=== PATIENT | female | born 1975 | race Caucasian/White ===

== ENCOUNTER 2016-10-13 11:14 | Emergency (ER) | payer MEDICAID ==
[~2016-10-13] VITALS: Ht 162.6 cm; Wt 97.5 kg
[~2016-10-13 11:14] MED LIST: ADVIL; ADVIL200 M1; MOTRIN200 MG; [UNRECOGNIZED DRUG - REMARK]
[2016-10-13 11:18] VITALS: BP 137/94
--- NOTE | 2016-10-13 12:24 | NUR ---
Patient ambulated to bed 5. RN evaluating patient at bedside.
--- NOTE | 2016-10-13 12:28 | NUR ---
Pt came to ER w/ c/o throbbing Headache x 1 wk pain scale of 8/10--denies cp/sob/n/v/f/cough/dizziness at this time, denies recent injury;Pt adds awoke today with throat pain;aaox4;no acute distress noted at this time;unlabored breathing w/ symmetrical chest expansion;HOB elevated;needs attended;safety measures done;all monitors in placed;positioned for comfort;
--- NOTE | 2016-10-13 12:30 | NUR ---
Dr. Stokes evaluating patient at bedside.
[2016-10-13] MEDS ORDERED: DEXAMETHASONE 4 MG/ML VIAL PO ONE (12:35)
[2016-10-13] MEDS ORDERED: ACETAMINOPHEN EXTRA STRENGTH 500 MG TAB PO ONE (12:35)
[2016-10-13] MEDS ORDERED: METOCLOPRAMIDE 10 MG TAB PO ONE (12:35)
--- NOTE | 2016-10-13 13:10 | NUR ---
pt went ct scan accompanied by tech.
[2016-10-13] MEDS ORDERED: ONDANSETRON 4 MG/2 ML VIAL IVP ONE (14:20)
[2016-10-13] MEDS ORDERED: NACL 0.9% 1,000 ML IV ONE (14:20)
[2016-10-13] MEDS ORDERED: MORPHINE SULFATE 4 MG/ML SYR IVP ONE (14:20)
[2016-10-13] MEDS ORDERED: LIDOCAINE 1% 500 MG/50 ML VIAL INJ ONE (14:20)
--- NOTE | 2016-10-13 14:54 | NUR ---
Dr. Stokes at bedside for lumbar puncture.
--- NOTE | 2016-10-13 15:30 | NUR ---
PT STILL C/O HEADACHE;NOTIFIED DR ESTRADA;PRESCRIBED ULTRAM AND ATIVAN.
[2016-10-13] MEDS ORDERED: traMADol 50 MG TAB PO ONE (15:35)
[2016-10-13] MEDS ORDERED: LORazepam 0.5 MG TAB PO ONE (15:35)
--- NOTE | 2016-10-13 16:08 | NUR ---
PT LYING ON BED;PT C/O HEADACHE;POSITIONED FOR COMFORT;NEEDS ATTENDED;WILL CONITMUE TO MONITOR PT.
--- NOTE | 2016-10-13 16:09 | NUR ---
DR ESTRADA AT BEDSIDE.
--- NOTE | 2016-10-13 16:16 | NUR ---
ASSESSED LUMBAR PUNCTURE SITE;NO BLOOD /CSF LEAKING;PT DENIES PAIN AT THE SITE;WILL CONTINUE TO MONITOR PT.
--- NOTE | 2016-10-13 16:50 | NUR ---
Patient to be transferred to [facility]. Is being transferred due to HIGHER LEVEL OF CARE;NEURO SURGERY. Receiving facility has accepting physician and available space. ER physician has signed transfer form. Patient or responsible libertarian has agreed to transfer and signed form. Patient belongings inventoried and will be sent with patient. Copy of nursing notes, lab reports, EKG, Physicians Orders and X-rays to be sent with patient. Report called to CAROLINA DUNBAR at receiving facility. [facility] ambulance service has been called for transfer. ETA is 30 MINS.
--- NOTE | 2016-10-13 17:00 | NUR ---
[facility] at bedside for transport to [facility].
[2016-10-13 17:12] VITALS: BP 142/86
== END 2016-10-13 16:50 | disposition short-term general hospital (02) ==
LOC: MED 11:14
DX: R51 Headache (principal); H53.149 Visual discomfort, unspecified; J02.9 Acute pharyngitis, unspecified
CPT/HCPCS: 36415; 62270; 70450; 80053; 81002; 81025; 82948; 84157; 85025; 85610; 85730; 87070; 87205; 96361; 96374; 96375; 99285; J1100; J2001; J2270; J2405; J7030; J8597; Q0163

== ENCOUNTER 2018-10-16 12:50 | Emergency (ER) | payer MEDICAID ==
[~2018-10-16] VITALS: Ht 162.6 cm; Wt 96.8 kg
[2018-10-16 13:00] VITALS: BP 134/76
--- NOTE | 2018-10-16 13:52 | NUR ---
PATIENT AMBULATED TO BED 11
--- NOTE | 2018-10-16 14:02 | NUR ---
PT C/O LLQ ABD PAIN X3 DAYS. PT REPORTS 10/10 BURNING SHARP PAIN, PRIMARILY ON L SIDE. DENIES N/V/D. PT TOOK MOTRIN. SKIN IS PINK/WARM/DRY; AAOX4 WITH EVEN AND STEADY GAIT; LUNGS CLEAR BL; HR EVEN AND REGULAR; PT DENIES ANY FEVER, CP, SOB, OR COUGH AT THIS TIME; PATIENT STATES PAIN OF 10/10 AT THIS TIME; VSS; PATIENT POSITIONED FOR COMFORT; HOB ELEVATED; BEDRAILS UP X2; BED DOWN. ER MD MADE AWARE OF PT STATUS.
[2018-10-16] MEDS ORDERED: KETOROLAC 15 MG/ML VIAL IVP ONE (15:10)
--- NOTE | 2018-10-16 15:18 | NUR ---
PT LEFT FOR CT VIA WHEELCHAIR PER TECH
[2018-10-16 15:33] LABS: BASOPHILS # (AUTO) 0.1 K/uL (0.00-0.22); BASOPHILS % (AUTO) 0.4 % (0.0-2.0); EOSINOPHILS # (AUTO) 0.2 K/uL (0-0.4); EOSINOPHILS % (AUTO) 1.7 % (0.0-4.0); HEMATOCRIT 40.7 % (36-48); HEMOGLOBIN 13.6 g/dL (12.0-16.0); LYMPHOCYTES # (AUTO) 2.8 K/uL (2.5-16.5); LYMPHOCYTES % (AUTO) 22.1 % (20.5-51.1); MEAN CORPUSCULAR HEMOGLOBIN 31 pg (27-31); MEAN CORPUSCULAR HGB CONC 34 g/dL (33-37); MEAN CORPUSCULAR VOLUME 92.9 fL (80-94); MONOCYTES % (AUTO) 7.6 % (1.7-9.3); NEUTROPHILS # (AUTO) 8.8 K/uL (1.8-7.7); NEUTROPHILS % (AUTO) 68.2 % (42.2-75.2); PLATELET COUNT (AUTO) 308 K/uL (140-450); RED BLOOD CELL COUNT(AUTO) 4.39 MIL/uL (4.20-5.40); RED CELL DISTRIBUTION WIDTH 13.1 % (11.6-13.7); WHITE BLOOD COUNT (AUTO) 12.9 K/uL (4.8-10.8)
[2018-10-16 15:35] LABS: APPEARANCE,URINE CLEAR (CLEAR); BILIRUBIN,URINE NEGATIVE (NEGATIVE); BLOOD, URINE NEGATIVE (NEGATIVE); COLOR,URINE YELLOW (YELLOW); NITRITE, URINE NEGATIVE (NEGATIVE); UGLUCOSE NEGATIVE (NEGATIVE)
[2018-10-16 15:36] LABS: LEUKOCYTE ESTERASE ,URINE NEGATIVE (NEGATIVE)
[2018-10-16 15:38] LABS: CARBON DIOXIDE 27.9 mmol/L (21-32); CREATININE 0.7 mg/dL (0.6-1.3); POTASSIUM 3.9 mmol/L (3.5-5.1)
[2018-10-16 15:45] LABS: ALBUMIN 3.4 g/dL (3.4-5.0); TOTAL BILIRUBIN 0.3 mg/dL (0.0-1.0)
[2018-10-16 16:43] VITALS: BP 128/75
--- NOTE | 2018-10-16 16:44 | NUR ---
Patient discharged with v/s stable. Written and verbal after care instructions given and explained. Patient alert, oriented and verbalized understanding of instructions. Ambulatory with steady gait. All questions addressed prior to discharge. ID band removed. Patient advised to follow up with PMD. Rx of NORCO, COLACE, FLAGYL AND BACTRIM given. Patient educated on indication of medication including possible reaction and side effects. Opportunity to ask questions provided and answered.
== END 2018-10-16 16:44 | disposition home or self-care (01) ==
LOC: MED 12:50
DX: K57.32 Diverticulitis of large intestine without perforation or abscess without bleeding (principal); R03.0 Elevated blood-pressure reading, without diagnosis of hypertension
CPT/HCPCS: 36415; 74176; 76856; 80053; 81003; 81025; 85025; 93976; 96374; 99284; J1885; Q0092

== ENCOUNTER 2019-04-25 08:21 | Emergency (ER) | payer SELFPAY ==
[~2019-04-25] VITALS: Ht 167.6 cm; Wt 79.4 kg
[2019-04-25 08:27] VITALS: BP 155/93
--- NOTE | 2019-04-25 08:27 | NUR ---
PT AMBULATED TO BED 09.
--- NOTE | 2019-04-25 08:56 | NUR ---
DR. SHARIF EVALUATING PT AT BEDSIDE.
[2019-04-25] MEDS ORDERED: KETOROLAC 60 MG/2 ML VIAL IM ONE (09:00)
[2019-04-25] MEDS ORDERED: ONDANSETRON 4 MG ODT PO ONE (09:00)
--- NOTE | 2019-04-25 09:08 | NUR ---
C/O GENERALIZED HEADACHE X3 DAYS CONSTANT SHARP 03/25. STATES "BOTH MY EYEBALLS HURT". NO VISUAL CHANGES, DIZZINESS. STATES N/V THAT STARTED THIS AM WITH 1X VOMITING. TAKING MOTRIN AT 0400 WITH NO IMPROVEMENT PERRL. 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 FULL CLEAR SPEECH. EVEN STEADY GAIT. HX DENIES
--- NOTE | 2019-04-25 10:15 | NUR ---
Patient re-evaluated for Torodal given for a pain of 10/10. Patient stated that the pain has not decreased and requested the lights be dimmed to see if that helps. Lights dimmed, will re-evaluate again for level of pain.
[2019-04-25] MEDS ORDERED: MORPHINE SULFATE 2 MG/ML SYR IM ONE (10:40)
--- NOTE | 2019-04-25 11:32 | NUR ---
PT STATES PAIN OF 8/10 AND CONTINUING TO DECREASE.
[2019-04-25 11:48] VITALS: BP 120/75
--- NOTE | 2019-04-25 11:48 | NUR ---
Patient discharged with v/s stable. Written and verbal after care instructions given and explained. Patient alert, oriented and verbalized understanding of instructions. Ambulatory with steady gait. All questions addressed prior to discharge. ID band removed. Patient advised to follow up with PMD. Rx of Tramadol 50mg given. Patient educated on indication of medication including possible reaction and side effects. Opportunity to ask questions provided and answered.
== END 2019-04-25 11:48 | disposition home or self-care (01) ==
LOC: MED 08:21
DX: G44.209 Tension-type headache, unspecified, not intractable (principal); R03.0 Elevated blood-pressure reading, without diagnosis of hypertension
CPT/HCPCS: 96372; 99283; J1885; J2270; Q0162

== ENCOUNTER 2019-06-07 12:45 | Emergency (ER) | payer MEDICAID ==
[~2019-06-07] VITALS: Ht 160 cm; Wt 88.5 kg
[2019-06-07 13:04] VITALS: BP 153/96
--- NOTE | 2019-06-07 13:15 | NUR ---
PT AMBULATED TO BED 04.
--- NOTE | 2019-06-07 13:15 | NUR ---
few hours ptc pt c/o of left sided headache accompanied by numbness of left side of the face .pt awake ,alert ,gsc 15 ,sensory 5/5 , 5/5 motor rt and left.no facial assymetry nor speech deficit at this time. pmhx htn. meds
[2019-06-07] MEDS ORDERED: diphenhydrAMINE 50 MG/ML VIAL IVP ONE (13:40)
[2019-06-07] MEDS ORDERED: PROCHLORPERAZINE 10 MG/2 ML VIAL IVP ONE (13:40)
[2019-06-07] MEDS ORDERED: KETOROLAC 30 MG/ML VIAL IVP ONE (13:40)
--- NOTE | 2019-06-07 14:18 | NUR ---
pt went to [facility] via wheel chair.
--- NOTE | 2019-06-07 14:25 | NUR ---
pt back from [facility] on a wheel chair.
--- NOTE | 2019-06-07 14:30 | NUR ---
PT REPORTS RELIEF OF PAIN POST MEDICATION ADMIN. RATES PAIN AT 10.
[2019-06-07 14:40] LABS: BASOPHILS % (AUTO) 0.3 % (0.0-2.0); EOSINOPHILS # (AUTO) 0.1 K/uL (0-0.4); EOSINOPHILS % (AUTO) 1.3 % (0.0-4.0); HEMATOCRIT 44.2 % (36-48); HEMOGLOBIN 14.7 g/dL (12.0-16.0); LYMPHOCYTES # (AUTO) 1.8 K/uL (2.5-16.5); MEAN CORPUSCULAR HEMOGLOBIN 32 pg (27-31); MEAN CORPUSCULAR HGB CONC 33 g/dL (33-37); MEAN CORPUSCULAR VOLUME 95.7 fL (80-94); MONOCYTES # (AUTO) 0.7 K/uL (0.8-1.0); MONOCYTES % (AUTO) 6.4 % (1.7-9.3); NEUTROPHILS # (AUTO) 7.5 K/uL (1.8-7.7); PLATELET COUNT (AUTO) 351 K/uL (140-450); RED BLOOD CELL COUNT(AUTO) 4.62 MIL/uL (4.20-5.40); RED CELL DISTRIBUTION WIDTH 13.3 % (11.6-13.7); WHITE BLOOD COUNT (AUTO) 10.1 K/uL (4.8-10.8)
[2019-06-07 14:52] LABS: ANION GAP 11.4 (8-16); CARBON DIOXIDE 28.4 mmol/L (21-32); CREATININE 0.6 mg/dL (0.6-1.3); POTASSIUM 3.8 mmol/L (3.5-5.1)
--- NOTE | 2019-06-07 15:40 | NUR ---
IV removed, catheter intact and site benign. Applied folded 4x4 gauze and tape to stop bleeding.
[2019-06-07 15:56] VITALS: BP 151/88
== END 2019-06-07 15:56 | disposition home or self-care (01) ==
LOC: MED 12:45
DX: G43.909 Migraine, unspecified, not intractable, without status migrainosus (principal); I10 Essential (primary) hypertension
CPT/HCPCS: 36415; 70450; 80048; 81025; 85025; 96374; 96375; 99284; J0780; J1200; J1885

== ENCOUNTER 2019-07-18 17:07 | Emergency (ER) | payer MEDICAID ==
[~2019-07-18] VITALS: Ht 157.5 cm; Wt 88.9 kg
[2019-07-18 17:12] VITALS: BP 121/76
--- NOTE | 2019-07-18 17:15 | NUR ---
PT AMBULATED TO ER BED 08
--- NOTE | 2019-07-18 18:12 | NUR ---
44 Y/O F C/O LEFT FLANK PAIN 5/10 THAT DOES NOT RADIATE. PT STATES PAIN X 3 DAYS, GETTING WORSE TODAY. PT DENIES N/V/F OR PAIN WITH URINATION. PT ABDOMEN SOFT, NON TENDER TO TOUCH. PT PUT IN GOWN, POSITIONED FOR COMFORT. FAMILY MEMBER AT BEDSIDE. BED LOWER, SIDE RAIL X1 IN PLACE. NKA
--- NOTE | 2019-07-18 18:13 | NUR ---
UA COLLECTED, SENT TO LAB.
[2019-07-18 18:22] LABS: APPEARANCE,URINE CLEAR (CLEAR); BILIRUBIN,URINE 1+ (NEGATIVE); BLOOD, URINE NEGATIVE (NEGATIVE); COLOR,URINE YELLOW (YELLOW); LEUKOCYTE ESTERASE ,URINE 1+ (NEGATIVE); NITRITE, URINE NEGATIVE (NEGATIVE); PH,URINE 6.5 (5.0-9.0); UGLUCOSE NEGATIVE (NEGATIVE)
[2019-07-18] MEDS ORDERED: HYDROcodone/APAP 5/325 MG 1 TAB TAB PO ONE (18:25)
[2019-07-18 18:41] LABS: RBC,URINE 0 /HPF (0-5)
--- NOTE | 2019-07-18 18:46 | NUR ---
PT RESTING COMFORTABLY, VSS. FAMILY MEMBER AT BEDSIDE.
[2019-07-18] MEDS ORDERED: CEPHALEXIN 500 MG CAP PO ONE (18:50)
--- NOTE | 2019-07-18 18:56 | NUR ---
DR DIAZ AT BEDSIDE EXAMINING PATIENT.
[2019-07-18 19:02] VITALS: BP 121/76
== END 2019-07-18 19:02 | disposition home or self-care (01) ==
LOC: MED 17:07
DX: N30.90 Cystitis, unspecified without hematuria (principal)
CPT/HCPCS: 81001; 81025; 87086; 99283

== ENCOUNTER 2019-08-21 18:41 | Emergency (ER) | payer MEDICAID ==
[~2019-08-21] VITALS: Ht 162.6 cm; Wt 89.4 kg
[2019-08-21 18:46] VITALS: BP 149/91
--- NOTE | 2019-08-21 18:55 | NUR ---
w/c assist to bed 04 with daughter
--- NOTE | 2019-08-21 19:07 | NUR ---
Fell to concrete ground from standing position. States LOC for 5 minutes per daughter. Pt states generalized headache and dizziness. pt awake , alert, afibrile c/o headache 10/10 , no neurologic deficit at time of examination. Hx- denies
--- NOTE | 2019-08-21 19:11 | NUR ---
give report to todd mayorga.
--- NOTE | 2019-08-21 19:13 | NUR ---
Dr. Martin examining patient.
[2019-08-21] MEDS ORDERED: KETOROLAC 60 MG/2 ML VIAL IM ONE (19:20)
[2019-08-21] MEDS ORDERED: ONDANSETRON 4 MG/2 ML VIAL IM ONE (19:20)
[2019-08-21] MEDS ORDERED: PROCHLORPERAZINE 10 MG/2 ML VIAL IM ONE (20:05)
[2019-08-21] MEDS ORDERED: diphenhydrAMINE 50 MG/ML VIAL IM ONE (20:05)
[2019-08-21 21:08] VITALS: BP 135/87
--- NOTE | 2019-08-21 21:09 | NUR ---
Patient discharged with v/s stable. Written and verbal after care instructions given and explained. Patient alert, oriented and verbalized understanding of instructions. Ambulatory with steady gait escorted by family. All questions addressed prior to discharge. ID band removed. Patient advised to follow up with PMD. Rx of COMPAZINE, BENADRYL given. Patient educated on indication of medication including possible reaction and side effects. Opportunity to ask questions provided and answered.
== END 2019-08-21 21:09 | disposition home or self-care (01) ==
LOC: MED 18:41
DX: G43.909 Migraine, unspecified, not intractable, without status migrainosus (principal); I10 Essential (primary) hypertension
CPT/HCPCS: 96372; 99284; J0780; J1200; J1885; J2405

== ENCOUNTER 2020-01-18 18:41 | Emergency (ER) | payer MEDICAID ==
[~2020-01-18] VITALS: Ht 162.6 cm; Wt 84.8 kg
[2020-01-18 18:48] VITALS: BP 160/109
--- NOTE | 2020-01-18 19:20 | NUR ---
PT TAKEN TO BED 11, AMBULATED WITH STEADY GAIT.
--- NOTE | 2020-01-18 19:27 | NUR ---
45 Y/O FEMALE C/O MIGRAINES AVILES X 1 DAY. TOOK IBUPROFEN AT 1400 YESTERDAY WITH NO RELIEF. 03/16 PAIN. NO DISTRESS NOTED AT THIS. HEART SOUNDS S1S2 PRESENT AND LUNG SOUNDS CLEAR ALL THROUGHOUT. DENIES ANY HEAD TRUAMA OR INJURY. +NAUSEA. +LIGHT AND SOUND SENSATIVITY. STEADY GAIT. VSS. NKDA. PMH: MIGRAINES
[2020-01-18] MEDS ORDERED: NACL 0.9% 1,000 ML IV ONE (19:40)
[2020-01-18] MEDS ORDERED: KETOROLAC 15 MG/ML VIAL IVP ONE (19:40)
[2020-01-18] MEDS ORDERED: METOCLOPRAMIDE 10 MG/2 ML INJ VIAL IVP ONE (19:40)
--- NOTE | 2020-01-18 20:50 | NUR ---
IV removed, catheter intact and site benign. Applied folded 4x4 gauze and tape to stop bleeding.
--- NOTE | 2020-01-18 20:51 | NUR ---
Patient discharged with v/s stable. Written and verbal after care instructions given and explained. Patient alert, oriented and verbalized understanding of instructions. Ambulatory with steady gait. All questions addressed prior to discharge. ID band removed. Patient advised to follow up with PMD. Rx of SUMITRIPTAN, ZOFRAN, MOTRIN given. Patient educated on indication of medication including possible reaction and side effects. Opportunity to ask questions provided and answered.
[2020-01-18 20:52] VITALS: BP 151/84
== END 2020-01-18 20:51 | disposition home or self-care (01) ==
LOC: MED 18:41
DX: R51 Headache (principal); I10 Essential (primary) hypertension; G43.909 Migraine, unspecified, not intractable, without status migrainosus
CPT/HCPCS: 96361; 96374; 96375; 99284; J1885; J2765; J7030; Q0163

== ENCOUNTER 2020-02-09 15:25 | Emergency (ER) | payer MEDICAID, SELFPAY ==
[~2020-02-09] VITALS: Ht 160 cm; Wt 89.8 kg
[2020-02-09 15:48] VITALS: BP 137/94
[2020-02-09 17:00] VITALS: BP 137/94
== END 2020-02-09 17:01 | disposition home or self-care (01) ==
LOC: MED 15:25
DX: R53.1 Weakness (principal); Z20.828 Contact with and (suspected) exposure to other viral communicable diseases; M79.10 Myalgia, unspecified site; R43.8 Other disturbances of smell and taste; I10 Essential (primary) hypertension
CPT/HCPCS: 99283; U0003

== ENCOUNTER 2020-07-30 14:39 | Emergency (ER) | payer MEDICAID, SELFPAY ==
[~2020-07-30] VITALS: Ht 162.6 cm; Wt 83.5 kg
[2020-07-30 14:42] VITALS: BP 130/70
--- NOTE | 2020-07-30 14:44 | NUR ---
AMBULATED TO BED 4
--- NOTE | 2020-07-30 14:48 | NUR ---
Recieved care of a 45 y/o female coming from home c/o migraine-like frontal headache, described by pt as "pulling across her forehead". No med hx, no known allergies.
[2020-07-30] MEDS ORDERED: KETOROLAC 30 MG/ML VIAL IVP ONE (15:15)
[2020-07-30] MEDS ORDERED: NACL 0.9% 1,000 ML IV ONE (15:15)
[2020-07-30] MEDS ORDERED: METOCLOPRAMIDE 10 MG/2 ML INJ VIAL IVP ONE (15:15)
[2020-07-30] MEDS ORDERED: diphenhydrAMINE 50 MG/ML VIAL IVP ONE (15:15)
[2020-07-30 17:12] VITALS: BP 126/68
--- NOTE | 2020-07-30 17:38 | NUR ---
Patient discharged with v/s stable. Written and verbal after care instructions given and explained. Patient alert, oriented and verbalized understanding of instructions. Ambulatory with steady gait. All questions addressed prior to discharge. ID band removed. Patient advised to follow up with PMD. Rx of Fioricet given. Patient educated on indication of medication including possible reaction and side effects. Opportunity to ask questions provided and answered.
--- NOTE | 2020-08-01 05:55 | NUR ---
LATE ENTRY--- 0.9% NS BOLUS DISCONTINUED AT 1700
== END 2020-07-30 17:09 | disposition home or self-care (01) ==
LOC: MED 14:39
DX: R51.9 Headache, unspecified (principal); I10 Essential (primary) hypertension
CPT/HCPCS: 96361; 96374; 96375; 99284; J1200; J1885; J2765; J7030

== ENCOUNTER 2020-10-14 22:23 | Emergency (ER) | payer MEDICAID ==
[~2020-10-14] VITALS: Ht 165.1 cm; Wt 83.9 kg
[2020-10-14 22:34] VITALS: BP 130/61
[2020-10-14] MEDS ORDERED: KETOROLAC 60 MG/2 ML VIAL IM ONE (22:40)
[2020-10-15] MEDS ORDERED: MORPHINE SULFATE 4 MG/ML SYR IM ONE
[2020-10-15] MEDS ORDERED: IBUP-2213 PO (00:19)
[2020-10-15] MEDS ORDERED: ACET-8386 PO (00:19)
[2020-10-15 01:00] VITALS: BP 134/77
== END 2020-10-15 01:00 | disposition home or self-care (01) ==
LOC: MED 22:23
DX: S76.211A Strain of adductor muscle, fascia and tendon of right thigh, initial encounter (principal); I10 Essential (primary) hypertension; X58.XXXA Exposure to other specified factors, initial encounter; Y93.89 Activity, other specified; Y92.89 Other specified places as the place of occurrence of the external cause; Y99.8 Other external cause status
CPT/HCPCS: 96372; 99284; J1885; J2270

== ENCOUNTER 2021-05-09 14:13 | Emergency (ER) | payer MEDICAID ==
[~2021-05-09] VITALS: Ht 160 cm; Wt 89.8 kg
[~2021-05-09 14:13] MED LIST changes: +ACET-8386 PO; -ADVIL; -ADVIL200 M1; +IBUP-2213 PO; -MOTRIN200 MG; -[UNRECOGNIZED DRUG - REMARK]
[2021-05-09 14:21] VITALS: BP 165/101
--- NOTE | 2021-05-09 14:36 | NUR ---
46/F BIB SELF WITH C/O HEADACHE AND NOSEBLEED. PATIENT STATES SHE WAS AT WORK AND HAD A NOSEBLEED WHICH SHE STATES WAS "HEAVY AND LASTED 5 MINUTES" DENIES INJURY OR TRAUMA, NO ACTIVE BLEEDING AT THIS TIME. PATIENT STATES SINCE THE BLEEDING HAS STOPPED SHE HAS HAD 9/10 THROBBING HEADACHE AND EYE PAIN, DENIES DIZZINESS OR BLURRED VISION, DENIES TAKING ANYTHING FOR PAIN. PATIENT DENIES CP, SOB, FEVER OR CHILLS.
[2021-05-09 15:26] LABS: BASOPHILS % (AUTO) 0.3 % (0.0-2.0); EOSINOPHILS # (AUTO) 0.2 K/uL (0-0.4); HEMATOCRIT 39.3 % (36-48); HEMOGLOBIN 13.5 g/dL (12.0-16.0); LYMPHOCYTES # (AUTO) 2.2 K/uL (2.5-16.5); LYMPHOCYTES % (AUTO) 25.1 % (20.5-51.1); MEAN CORPUSCULAR HEMOGLOBIN 32 pg (27-31); MEAN CORPUSCULAR HGB CONC 34 g/dL (33-37); MONOCYTES # (AUTO) 0.7 K/uL (0.8-1.0); MONOCYTES % (AUTO) 8.1 % (1.7-9.3); NEUTROPHILS # (AUTO) 5.6 K/uL (1.8-7.7); NEUTROPHILS % (AUTO) 64.5 % (42.2-75.2); PLATELET COUNT (AUTO) 289 K/uL (140-450); RED BLOOD CELL COUNT(AUTO) 4.23 MIL/uL (4.20-5.40); WHITE BLOOD COUNT (AUTO) 8.7 K/uL (4.8-10.8)
--- NOTE | 2021-05-09 15:30 | NUR ---
PATIENT RESTING IN BED, AWAITING RESULTS. ALL NEEDS MET AT THIS TIME.
[2021-05-09 15:40] LABS: ALBUMIN 3.6 g/dL (3.4-5.0); ANION GAP 11.3 (8-16); CARBON DIOXIDE 28.4 mmol/L (21-32); CREATININE 0.6 mg/dL (0.6-1.3); POTASSIUM 3.7 mmol/L (3.5-5.1); PROTHROMBIN TIME 9.6 secs (10.8-13.4); TOTAL BILIRUBIN 0.2 mg/dL (0.0-1.0)
[2021-05-09] MEDS ORDERED: ONDA-188 PO (16:28)
[2021-05-09] MEDS ORDERED: ACET-8386 PO (16:28)
[2021-05-09 16:42] VITALS: BP 165/101
--- NOTE | 2021-05-09 16:42 | NUR ---
Patient discharged with v/s stable. Written and verbal after care instructions ABOUT GENERAL HEADACHE AND NOSEBLEED given and explained. Patient alert, oriented and verbalized understanding of instructions. Ambulatory with steady gait. All questions addressed prior to discharge. ID band removed. Patient advised to follow up with PMD. Rx of NORCO 5-325 AND ZOFRAN given. Patient educated on indication of medication including possible reaction and side effects. PATIENT EDUCATED ON USE OF NARCOTICS, ADVISED TO AVOID DRINKING OR DRIVING WHILE USING. Opportunity to ask questions provided and answered.
== END 2021-05-09 16:42 | disposition home or self-care (01) ==
LOC: MED 14:13
DX: R04.0 Epistaxis (principal); R51.9 Headache, unspecified; I10 Essential (primary) hypertension; Z79.899 Other long term (current) drug therapy
CPT/HCPCS: 36415; 70450; 80053; 84703; 85025; 85610; 99284

== ENCOUNTER 2021-05-09 17:09 | Emergency (ER) | payer MEDICAID ==
[~2021-05-09] VITALS: Ht 160 cm; Wt 89.8 kg
[~2021-05-09 17:09] MED LIST changes: +ONDA-188 PO
[2021-05-09 17:30] VITALS: BP 182/105
--- NOTE | 2021-05-09 17:35 | NUR ---
PT AMBULATED TO BED 11 AT THIS TIME, ICE PACK GIVEN
--- NOTE | 2021-05-09 18:07 | NUR ---
46 Y/O F BIB SPOUSE FROM WORK, C/O WAS PREVIOUSLY SEEN FOR NOSE BLEED FOR 5 MINUTES, NONSTOP, AFTER AN HOUR PT STARTED HAVING AVILES THAT RADIATES TO BILATERAL EYES. DENIES BLURRY OR DOUBLE VISION AT THIS TIME. DENIES N/V/D. DENIES FALL, LOC, OR SYNCOPE. PT WAS SEEN PREVIOUSLY HERE AND DX, PT CAME BACK FEW MINUTES LATER, BLEEDING IS HEAVY CONSISTENT AT THIS TIME. PRESSURE IS APPLIED. PT STATES 8/10 PAIN. PMH: HTN NKA
[2021-05-09] MEDS ORDERED: TRANEXAMIC ACID 1,000 MG/10 ML VIAL MC ONE (18:15)
--- NOTE | 2021-05-09 18:32 | NUR ---
ERMD AT BEDSIDE PERFORMING PROCEDURE
--- NOTE | 2021-05-09 19:21 | NUR ---
Pt report given to JACOB FIGUEROA. Transfer of care at this time.
--- NOTE | 2021-05-09 19:58 | NUR ---
Patient discharged with v/s stable. Written and verbal after care instructions given and explained. Patient verbalized understanding. Ambulatory with steady gait. All questions addressed prior to discharge. Advised to follow up with PMD.
[2021-05-09 20:02] VITALS: BP 182/105
== END 2021-05-09 19:58 | disposition home or self-care (01) ==
LOC: MED 17:09
DX: R04.0 Epistaxis (principal); I10 Essential (primary) hypertension; Z79.899 Other long term (current) drug therapy
CPT/HCPCS: 99283; J3490

== ENCOUNTER 2021-09-09 18:24 | Emergency (ER) | payer MEDICAID ==
[~2021-09-09] VITALS: Ht 160 cm; Wt 93.4 kg
[2021-09-09 18:39] VITALS: BP 125/85
--- NOTE | 2021-09-09 18:45 | NUR ---
Pt in lobby
[2021-09-09] MEDS ORDERED: PRED20TA5 PO (19:32)
[2021-09-09] MEDS ORDERED: LORA10TA60 PO (19:32)
[2021-09-09] MEDS ORDERED: DIPH25TA53 PO (19:32)
[2021-09-09 19:38] VITALS: BP 125/85
--- NOTE | 2021-09-09 19:38 | NUR ---
Patient discharged with v/s stable. Written and verbal after care instructions given and explained. Patient alert, oriented and verbalized understanding of instructions. Ambulatory with steady gait. All questions addressed prior to discharge. ID band removed. Patient advised to follow up with PMD. Rx of BENADRYL, LORTADINE, AND PREDNISONE given. Patient educated on indication of medication including possible reaction and side effects. Opportunity to ask questions provided and answered.
== END 2021-09-09 19:38 | disposition home or self-care (01) ==
LOC: MED 18:24
DX: T78.49XA Other allergy, initial encounter (principal); I10 Essential (primary) hypertension; Z79.899 Other long term (current) drug therapy; Z79.891 Long term (current) use of opiate analgesic; Z79.1 Long term (current) use of non-steroidal anti-inflammatories (NSAID); X58.XXXA Exposure to other specified factors, initial encounter
CPT/HCPCS: 99283

== ENCOUNTER 2022-02-06 07:16 | Emergency (ER) | payer MEDICAID ==
[~2022-02-06] VITALS: Ht 162.6 cm; Wt 93.5 kg
[~2022-02-06 07:16] MED LIST changes: +DIPH25TA53 PO; +LORA10TA60 PO; +PRED20TA5 PO
[2022-02-06 07:19] VITALS: BP 134/80
--- NOTE | 2022-02-06 07:27 | NUR ---
PATIENT AMBULATED TO BED 8.
--- NOTE | 2022-02-06 07:39 | NUR ---
Dr. Yang evaluating patient at bedside.
[2022-02-06] MEDS ORDERED: KETOROLAC 60 MG/2 ML VIAL IM ONE (07:40)
--- NOTE | 2022-02-06 08:02 | NUR ---
Ultrasound at bedside.
--- NOTE | 2022-02-06 08:05 | NUR ---
47 y/o female bib self with c/o pelvic pain x 1 hour. Patient denies having this pain before. Patient states her pain woke her up from her sleep. Patient has a 10/10 non-radiating sharp pain to pelvic area. Denies burning while urination. Medical History: HTN NKDA
[2022-02-06] MEDS ORDERED: NAPR-1704 PO (09:01)
[2022-02-06] MEDS ORDERED: TRAM50TA1 PO (09:01)
[2022-02-06] MEDS ORDERED: NITR100C7 PO (09:06)
[2022-02-06 09:20] VITALS: BP 153/77
--- NOTE | 2022-02-06 09:20 | NUR ---
Patient discharged with v/s stable. Written and verbal after care instructions given. Patient alert, oriented and verbalized understanding of instructions. Ambulatory with steady gait. All questions addressed prior to discharge. ID band removed. Patient advised to follow up with PMD. Rx of Tramadol and Naproxen given. Opportunity to ask questions provided and answered.
--- NOTE | 2022-02-06 09:21 | NUR ---
Chart checked and completed. The patient's care was reviewed and supervised by Purnima Paige RN.
[2022-02-06 10:04] LABS: APPEARANCE,URINE CLEAR (CLEAR); BILIRUBIN,URINE NEGATIVE (NEGATIVE); BLOOD, URINE NEGATIVE (NEGATIVE); COLOR,URINE YELLOW (YELLOW); NITRITE, URINE NEGATIVE (NEGATIVE); UGLUCOSE NEGATIVE (NEGATIVE)
[2022-02-06 10:25] LABS: LEUKOCYTE ESTERASE ,URINE 1+ (NEGATIVE)
== END 2022-02-06 09:20 | disposition home or self-care (01) ==
LOC: MED 07:16
DX: R10.2 Pelvic and perineal pain (principal); I10 Essential (primary) hypertension; Z79.899 Other long term (current) drug therapy
CPT/HCPCS: 76830; 76856; 81003; 81025; 87086; 87491; 93976; 96372; 99284; J1885; Q0092

== ENCOUNTER 2023-03-26 07:36 | Emergency (ER) | payer MEDICAID ==
[~2023-03-26] VITALS: Ht 160 cm; Wt 85.3 kg
[~2023-03-26 07:36] MED LIST changes: -ACET-8386 PO; +ACET-8905 PO; +METO-485 PO; +NAPR-1704 PO; +NAPR-54 PO; +NITR100C7 PO; +TRAM-748 PO
[2023-03-26 07:46] VITALS: BP 124/63; PULSE 60; RESP 20; TEMP 98.5; O2SAT 98
[2023-03-26] MEDS: PROCHLORPERAZINE 10 MG/2 ML VIAL IM ONE (10:14)
[2023-03-26] MEDS: KETOROLAC 60 MG/2 ML VIAL IM ONE (10:14)
[2023-03-26] MEDS ORDERED: ACET-9234 PO (11:19)
[2023-03-26 11:27] VITALS: BP 124/63; PULSE 60; RESP 20; TEMP 98.5; O2SAT 98
== END 2023-03-26 11:30 | disposition home or self-care (01) ==
LOC: MED 07:36
DX: G43.909 Migraine, unspecified, not intractable, without status migrainosus (principal); I10 Essential (primary) hypertension; Z79.899 Other long term (current) drug therapy
CPT/HCPCS: 96372; 99284; J0780; J1885

== ENCOUNTER 2023-08-24 03:29 | Emergency (ER) | payer MEDICAID ==
[~2023-08-24] VITALS: Ht 160 cm; Wt 84.6 kg
[~2023-08-24 03:29] MED LIST changes: +ACET-9234 PO
[2023-08-24 03:35] VITALS: BP 142/55; PULSE 62; RESP 17; TEMP 97.8; O2SAT 100
[2023-08-24 04:12] VITALS: BP 132/79; PULSE 56; RESP 18; TEMP 97.3; O2SAT 98
[2023-08-24] MEDS: ACETAMINOPHEN EXTRA STRENGTH 500 MG TAB PO ONE (05:21)
== END 2023-08-24 05:24 | disposition home or self-care (01) ==
LOC: MED 03:29
DX: R51.9 Headache, unspecified (principal); R04.0 Epistaxis; I10 Essential (primary) hypertension; Z79.899 Other long term (current) drug therapy
CPT/HCPCS: 99282

== ENCOUNTER 2023-08-27 20:59 | Emergency (ER) | payer MEDICAID | END 2023-08-27 21:50 | disposition left against medical advice (07) | LOC: MED 20:59 | DX: R04.0 Epistaxis (principal); Z53.21 Procedure and treatment not carried out due to patient leaving prior to being seen by health care provider ==

== ENCOUNTER 2023-12-14 14:08 | Emergency (ER) | payer MEDICAID ==
[~2023-12-14] VITALS: Ht 165.1 cm; Wt 85.0 kg
[~2023-12-14 14:08] MED LIST changes: +NAPR-337 PO; -NAPR-54 PO
[2023-12-14 14:28] VITALS: BP 139/88; PULSE 68; RESP 17; TEMP 97.8; O2SAT 98
[2023-12-14] MEDS ORDERED: OXYM15SP72 NS (14:58)
[2023-12-14] MEDS: SILVER NITRATE APPLICATOR 1 EA SWAB TP ONE (15:06)
[2023-12-14] MEDS: KETOROLAC 30 MG/ML VIAL IM ONE (15:06)
== END 2023-12-14 15:10 | disposition home or self-care (01) ==
LOC: MED 14:08
DX: R51.9 Headache, unspecified (principal); R04.0 Epistaxis; I10 Essential (primary) hypertension; Z79.899 Other long term (current) drug therapy
CPT/HCPCS: 30901; 81025; 96372; 99283; J1885